=== PATIENT | male | born 1980 | race Hispanic/Latino ===

== ENCOUNTER → 2023-01-26 | Outpatient (CLI) | payer OTHER ==
[~2023-01-26] MED LIST: DOCU100T PO; TYL3 PO
== END | disposition home or self-care (01) ==
LOC: RAH 07:29
PROVIDERS: ATTEND Family Medicine
DX: S83.241A Other tear of medial meniscus, current injury, right knee, initial encounter (principal); S86.911D Strain of unspecified muscle(s) and tendon(s) at lower leg level, right leg, subsequent encounter; S83.91XD Sprain of unspecified site of right knee, subsequent encounter; M67.461 Ganglion, right knee; M65.861 Other synovitis and tenosynovitis, right lower leg; X58.XXXA Exposure to other specified factors, initial encounter; Y93.89 Activity, other specified; Y92.89 Other specified places as the place of occurrence of the external cause; Y99.8 Other external cause status; X58.XXXD Exposure to other specified factors, subsequent encounter
CPT/HCPCS: 73721

== ENCOUNTER 2023-06-16 05:39 | Day surgery (SDC) | payer OTHER ==
[2023-06-13 10:01] LABS: BASOPHILS # (AUTO) 0.07 K/uL (0.00-0.20); BASOPHILS % (AUTO) 1.2 % (0.0-5.0); EOSINOPHILS # (AUTO) 0.37 K/uL (0.00-0.70); EOSINOPHILS % (AUTO) 6.1 % (0.0-8.0); HEMATOCRIT 48.2 % (42-54); IMMATURE GRANULOCYTE ABSOLUTE 0.04 K/uL (0-1); LYMPHOCYTES # (AUTO) 2.5 K/uL (1.0-4.8); LYMPHOCYTES % (AUTO) 40.5 % (21.0-51.0); MEAN CORPUSCULAR HEMOGLOBIN 30.8 pg (27.0-33.0); MEAN CORPUSCULAR HGB CONC 33.8 g/dL (32.0-36.0); MEAN CORPUSCULAR VOLUME 90.9 fL (79-99); MONOCYTES # (AUTO) 0.5 K/uL (0.1-1.0); MONOCYTES % (AUTO) 8.7 % (3.0-13.0); NEUTROPHILS # (AUTO) 2.6 K/uL (1.8-7.7); NEUTROPHILS % (AUTO) 42.8 % (40.0-77.0); PLATELET COUNT (AUTO) 291 K/uL (130-400); RED CELL DISTRIBUTION WIDTH 12.4 % (11.0-15.5); WHITE BLOOD COUNT (AUTO) 6.1 K/uL (4.8-10.8)
[2023-06-13 10:09] LABS: CREATININE 0.9 mg/dL (0.5-1.5)
[2023-06-14 16:39] VITALS: BP 122/76; PULSE 60; RESP 18
[2023-06-16] VITALS (17 sets, daily range): BP systolic 111–143; BP diastolic 65–87; PULSE 55–64; RESP 12–16
[~2023-06-16] VITALS: Ht 170.2 cm; Wt 103.6 kg
[~2023-06-16 05:39] MED LIST changes: +ACET-66 PO; -DOCU100T PO; +IBUP-2077 PO; +NAPR-1023 PO; -TYL3 PO
[2023-06-16] MEDS ORDERED: CEFAZOLIN SODIUM 2 GM VIAL ONE (05:58)
[2023-06-16] MEDS ORDERED: LACTATED RINGERS 1000ML 1,000 ML IV ONE (05:58)
[2023-06-16] MEDS ORDERED: DEXAMETHASONE SOD PHOSPHATE 10MG/ML 1ML VIAL ONE (07:00)
[2023-06-16] MEDS ORDERED: LIDOCAINE PF 100MG/5ML (2%) SYRINGE 5ML ONE (07:01)
[2023-06-16] MEDS ORDERED: PROPOFOL 10 MG/ML 20ML VIAL IV ONE (07:01)
[2023-06-16] MEDS ORDERED: MIDAZOLAM HCL 1 MG/ML 2ML VIAL ONE (07:01)
[2023-06-16] MEDS ORDERED: FENTANYL CITRATE PF 50 MCG/1 ML 2ML VIAL ONE ×2 (07:01→08:10)
[2023-06-16] MEDS ORDERED: KETAMINE 50MG/ML SYRINGE 50 MG/ML DISP.SYRIN ONE (07:14)
[2023-06-16] MEDS ORDERED: CEFAZOLIN SODIUM 2 GM VIAL IVPB ONE (07:15)
[2023-06-16] MEDS ORDERED: ROPIVACAINE 0.5% 5MG/ML 30ML ONE (08:34)
[2023-06-16] MEDS ORDERED: KETOROLAC 30MG VIAL (30MG/ML) ONE ×2 (09:01→10:18)
[2023-06-16] MEDS ORDERED: ACET-2079 PO (09:20)
== END 2023-06-16 11:05 | disposition home or self-care (01) ==
LOC: DAH 05:39
PROVIDERS: ATTEND Student in an Organized Health Care Education/Training Program
DX: S83.231A Complex tear of medial meniscus, current injury, right knee, initial encounter (principal); M17.11 Unilateral primary osteoarthritis, right knee; M94.261 Chondromalacia, right knee; Z79.899 Other long term (current) drug therapy; Z90.49 Acquired absence of other specified parts of digestive tract; Z82.49 Family history of ischemic heart disease and other diseases of the circulatory system; Z87.891 Personal history of nicotine dependence; Z79.01 Long term (current) use of anticoagulants; X58.XXXA Exposure to other specified factors, initial encounter; Y93.89 Activity, other specified; Y92.89 Other specified places as the place of occurrence of the external cause; Y99.8 Other external cause status
CPT/HCPCS: 80048; 85025; 36415; 29881; A4663; A4606; J7120; J3010 ×2; J1100; J2001; J2250; J2704; J1885 ×2; J2795; J3490; J0690 ×2; A4649 ×2; A5120; A4215; A4223; A4222; A4221